=== PATIENT | male | born 1960 | race Caucasian/White ===

== ENCOUNTER → 2023-06-26 15:03 | Outpatient (BNVA) | payer OTHER, SELFPAY | PROVIDERS: Visit Provider Physician Assistant ==

== ENCOUNTER 2023-07-24 13:29 | Outpatient (AMB) | payer OTHER, SELFPAY ==
--- NOTE | 2023-07-24 13:52 | HO.SPINEOV ---
Intake Intake Visit Reasons: review Xray Intake Note: Mr. Lopez is here today to review his x-ray results. Principal Biostatistician Required: No Assessment & Plan Assessment & Plan (1) Cervical disc disorder: Code(s): M50.90 - Cervical disc disorder, unspecified, unspecified cervical region Plan Mr Lopez is here in the office today for follow-up. He underwent a 3 level anterior cervical fusion C4-C7 [address] Black[address] He had been doing well and otherwise only having some mild issues with his neck. He had a new primary care physician who saw him in wanted to order some baseline x-rays on his neck. It was noted at the time of the x-rays that he was developing a spondylolisthesis at C7-T1. His PCP urgent him to come back and see us for an evaluation. The patient tells me that he does not have a significant amount of discomfort in his neck, but does feel some pain radiating across across the top of his shoulder. No tingling, numbness, weakness or fine motor movement issues. On my exam he is walking with a normal gait, full strength and normal reflexes. [facility] that [facility] has solid fusion from C4-C7 but is developing a worsening of spondylolisthesis at C7-T1. I can see it on his preoperative MRI in 2019 and concealed on postoperative x-rays done at [facility] in 2020. In light of that worsening I will order cervical MRI to rule out spinal cord compression. I will also get flexion-extension studies here at [place] today. I will call him with the results. Total amount of time spent in this visit was 20 minutes in discussion of symptoms, cervical x-ray imaging results and subsequent plan of care Александр Black MD,PhD [facility] Orders: Orders MR cervical spine wo con Today M50.90 - Cervical disc disorder, unspecified, unspecified cervical region XR cervical spine 4V Today M50.90 - Cervical disc disorder, unspecified, unspecified cervical region Coding Level of Care Code Est Pt Level 3 (33710) Diagnoses Cervical disc disorder M50.90
== END 2023-07-24 14:50 | disposition home or self-care (01) ==
PROVIDERS: Visit Provider Physician Assistant
DX: M50.90 Cervical disc disorder, unspecified, unspecified cervical region (principal)
CPT/HCPCS: 99213

== ENCOUNTER 2023-07-24 13:29 | Outpatient (REF) | payer OTHER, SELFPAY ==
--- NOTE | ~2023-07-24 | XR_ITS ---
EXAMINATION: XR CERVICAL SPINE CLINICAL INFORMATION: Cervical spine disc disorder COMPARISON: None available. TECHNIQUE: 4 views of the cervical spine were obtained. FINDINGS: Status post anterior cervical discectomy and fusion of C4-C7. Spinal hardware grossly intact. No acute visible fracture or dislocation. Grade 1-2 anterolisthesis of C6 on C7 without overt dynamic instability on flexion-extension views. The level degenerative changes with disc space narrowing, osteophyte formation, and facet arthropathy. Straightening of normal cervical curvature. Vertebral body heights and disc spaces are otherwise maintained. Prevertebral soft tissues are unremarkable. Posterior elements are intact. Paraspinal soft tissues are unremarkable. Visualized portions of the upper chest are unremarkable. XR/XR cervical spine 4V IMPRESSION: 1. No acute visible fracture or dislocation. 2. Status post anterior cervical discectomy and fusion of C4-C7. Spinal hardware grossly intact. 3. Grade 1-2 anterolisthesis of C6 on C7 without overt dynamic instability on flexion-extension views.
== END 2023-07-24 13:30 | disposition home or self-care (01) ==
LOC: HO.HOSX 13:29
PROVIDERS: Visit Provider Physician Assistant
DX: M50.90 Cervical disc disorder, unspecified, unspecified cervical region (principal); Z98.1 Arthrodesis status
CPT/HCPCS: 72050; 99212

== ENCOUNTER 2023-08-28 14:25 | Outpatient (REF) | payer OTHER, SELFPAY ==
--- NOTE | ~2023-08-28 | MR_ITS ---
MR CERVICAL SPINE WITHOUT CONTRAST CLINICAL INFORMATION: Cervical disc disorder. COMPARISON: Cervical spine radiographs 07/24/2023. TECHNIQUE: MRI of the cervical spine was obtained using routine sequences without contrast. FINDINGS: Postoperative changes following ACDF at the C4-C7 levels. There is anterior subluxation of C7 on T1. There is moderate disc volume loss at C3-C4 and C7-T1. The vertebral body heights are maintained. The craniocervical junction is unremarkable. There is no bone marrow edema. There are no acute fractures. Cervical arterial flow voids are maintained. No significant extraspinal soft tissue findings. Partially imaged posterior fossa is unremarkable. C2-C3: Disc osteophyte mildly narrows the central canal. Advanced uncovertebral joint hypertrophy and hypertrophic facet arthropathy result in severe bilateral foraminal stenosis. C3-C4: Disc osteophyte mildly narrows the central canal. Uncovertebral joint spurring and advanced facet arthropathy result in severe left and moderate right foraminal stenosis. C4-C5: ACDF changes. Advanced uncovertebral joint hypertrophy and hypertrophic facet arthropathy result in severe bilateral foraminal stenosis. C5-C6: ACDF changes. Advanced uncovertebral joint hypertrophy and hypertrophic facet arthropathy result in severe bilateral foraminal stenosis. C6-C7: ACDF changes. Advanced uncovertebral joint hypertrophy and hypertrophic facet arthropathy result in severe bilateral foraminal stenosis C7-T1: There is anterior subluxation measuring 5 mm that along with a diffuse disc osteophyte, advanced facet arthropathy, and ligamentum flavum thickening result in severe central canal stenosis and significant compression of the cervical spinal cord. Intramedullary T2 signal changes within the cervical cord at this level as the sequela of compressive myelopathy. Disc osteophyte and facet arthropathy result in severe bilateral foraminal stenosis at this level. MR/MR cervical spine wo con IMPRESSION: - At C7-T1, anterior subluxation and advanced multifactorial degenerative changes result in severe central canal stenosis, significant compression of the cervical spinal cord, and severe bilateral foraminal stenosis. Intramedullary T2 signal changes within the cervical cord at this level as the sequela of compressive myelopathy. - There are postoperative changes following ACDF at the C4-C7 levels. - Advanced spondylitic changes result in varying degrees of moderate to severe foraminal stenosis bilaterally throughout the cervical spine as described. Findings discussed with Александр Yoon at 3:24 PM on 08/28/2023.
== END 2023-08-28 14:26 | disposition home or self-care (01) ==
LOC: HO.MRI 14:25
PROVIDERS: PCP Nurse Practitioner Gerontology; Visit Provider Physician Assistant
DX: M50.90 Cervical disc disorder, unspecified, unspecified cervical region (principal)
CPT/HCPCS: 72141

== ENCOUNTER 2023-09-08 08:03 | Day surgery (SDC) | payer OTHER, SELFPAY ==
--- NOTE | 2023-09-07 | ECG_ITS ---
Test Reason : preop Blood Pressure : / mmHG Vent. Rate : 061 BPM Atrial Rate : 061 BPM P-R Int : 168 ms QRS Dur : 090 ms QT Int : 394 ms P-R-T Axes : 071 073 066 degrees QTc Int : 396 ms Normal sinus rhythm Normal ECG No previous ECGs available Referred By: Annalise Daniels Electronically Signed By:JOY PINA MD
[2023-09-07 12:08] VITALS: BP 144/90; PULSE 67; RESP 18; O2SAT 97; BMI 23.6
[2023-09-07 13:39] LABS: Hematocrit 45.3 % (42.0-52.0); Hemoglobin 15.4 g/dl (14.0-18.0); Mean Corpuscular Hemoglobin 31.8 pg (27.0-33.0); Mean Corpuscular Volume 93.4 fL (80.0-98.0); Mean Platelet Volume 9.1 fL (9.4-12.4); Platelet Count 353 X10*3/uL (160-400); Red Blood Count 4.85 X10*6/uL (4.60-5.80); Red Cell Distribution Width 12.4 % (11.0-16.0); White Blood Count 8.5 X10*3/uL (4.8-10.8)
[2023-09-07 14:19] LABS: Anion Gap 14 (12-20); Blood Urea Nitrogen 18 mg/dL (9-16); Calcium 9.9 mg/dL (8.4-10.2); Carbon Dioxide 28 mmol/L (22-29); Chloride 103 mmol/L (96-108); Creatinine Clr Calc Pharmacy 71.5; Estimated Glomerular Filt Rate > 60; Glucose Random 85 mg/dL (60-115); Potassium 4.4 mmol/L (3.3-5.1); Sodium 141 mmol/L (135-145)
[2023-09-08] VITALS (9 sets, daily range): BP systolic 127–166; BP diastolic 78–94; PULSE 68–81; RESP 16–18; TEMP 36.3–37.1; O2SAT 93–98
--- NOTE | ~2023-09-08 | FL_ITS ---
EXAMINATION: XR FLUOROSCOPY WITH IMAGES CLINICAL INFORMATION: C7-T1 anterior cervical discectomy with fusion. COMPARISON: None available. TECHNIQUE: Fluoroscopy Supervised By: Dr. Lavell Black. Fluoroscopy Time: 0.1 minutes. Cumulative Dose: 4.40 mGy. DAP: 0.369 Gycm2. Images: 2. FINDINGS: Cervical spine levels difficult to determine on submitted views. There is new anterior fusion hardware inferior to the previously fused levels with anterior plate and bilateral screws and disc cage. When compared with prior cervical spine x-ray this is probably at the T1 T2 level. FL/FL guidance in OR IMPRESSION: Fluoroscopy guidance for spine surgery
--- NOTE | 2023-09-08 07:00 | MHC.SHP ---
Pre-Procedural Eval Section A Date of Service: 09/08/23 Section B Chief Complaint: Cervical disc disorder, unspecified, Allergies: Allergies Allergy/AdvReac Type Severity Reaction Status Date / Time No Known Allergies Allergy Verified 09/04/23 10:30 Review of Systems Sug[facility] H&P ROS: Negative: Constitution, Cardiovascular, Respiratory, Neurological, Psychiatric, Hem-Onc, Allergic/Immunologic, Gastrointestinal, Genitourinary, Musculoskeletal, Integumentary, Endocrine and Eyes/Ears/Nose/Throat Exam Surgical H&P Exam: Not Evaluated: HEENT, Not Evaluated: Heart, Not Evaluated: Lungs, Not Evaluated: Extremities, Not Evaluated: Abdomen, Not Evaluated: Skin and Not Evaluated: Neurological Plan Diagnosis/Plan: Unchanged I have reviewed the history and physical and performed a pertinent physical examination on my patient. No changes have occurred unless specified. plan remains the same, C7-T1 ACDF Time Spent With Patient Time: Total time managing care of this patient today __10__ minutes.
[2023-09-08] MEDS: Lactated Ringers 1,000 ML 100 ML IVCONT (08:28)
[2023-09-08] MEDS: methocarbamoL 750 MG TABLET PO (08:30)
[2023-09-08] MEDS: Gabapentin 300 MG CAPSULE PO (08:30)
--- NOTE | 2023-09-08 10:00 | HO.ANESPROP2 ---
Documented by User: Annalise Daniels NP 09/07/23 12:59 HPI - Anesthesia Eval Consult details Narrative: 63yo M for C7-T1 Ant Cerv Discectomy w/ fusion with stand alone cage,anterior plating with poss removal of anterior No recent illness No CP/SOB PMFSH Active Problems Active Problems: All Active Problems (Updated 09/07/23 @ 12:00 by Corrine Adame RN) Cervical disc disorder (Acute) Past Medical History Medical History Hypothyroid Back pain Elevated cholesterol HTN (hypertension) Family History Family history of problems with anesthesia: No Surgical History Surgical History H/O colonoscopy Hx of bilateral inguinal hernia repair History of total bilateral knee replacement Hx of cervical discectomy History of Problems with Anesthesia: No Social History Social History Household Members Other:: mother lives with him-helps with her care Are you a primary care transitions manager to a significant other at home: Yes Do you presently have visiting nurse or other home services: No Patient Tobacco Use Status: Former Tobacco user Quit Date: 2011 Tobacco use type: Cigarette Years Smoked: 30 Use of substances other than those prescribed or required for medical reasons: Yes Substance Use Type Other:: smokes marijuana on occasion Substance Use Frequency: Occasionally Have you been hit, kicked, punched, or otherwise hurt by someone within the past year? If so, by whom?: No Are you DNR?: No Advance Directives Information Provided: Yes (as above noted-advised to bring copy DOS) Advance Directives on File: No Recently lost weight without trying: No Eating poorly because of decreased appetite: No Nutrition Risks: No Nutritional Risk Poor oral hygiene: No (implant-upper right front) Meds Allergies Allergy/AdvReac Type Severity Reaction Status Date / Time No Known Allergies Allergy Verified 09/08/23 08:11 Home Medications Medication Instructions Recorded Confirmed Last Taken Type sildenafil 100 mg tablet 100 mg PO DAILY PRN Erectile 09/04/23 09/08/23 Unknown History Dysfunction levothyroxine 50 mcg tablet 50 mcg PO QAM 09/07/23 09/07/23 09/08/23 History Exam Exam Date and Time: September 07, 2023 1226 Height,Weight and Vital Signs: Height 6 ft Weight 78.925 kg Last Vital Signs Pulse 67 09/07/23 12:08 Resp 18 09/07/23 12:08 BP 144/90 H 09/07/23 12:08 Pulse Ox 97 09/07/23 12:08 O2 Del Method Room Air 09/07/23 12:08 Narrative Narrative: EKG 09/2023 Vent. Rate : 061 BPM Atrial Rate : 061 BPM P-R Int : 168 ms QRS Dur : 090 ms QT Int : 394 ms P-R-T Axes : 071 073 066 degrees QTc Int : 396 ms Normal sinus rhythm Normal ECG No previous ECGs available Airway Mallampati Class: I TM Dist: >3cm Neck ROM: Limited Loose/Missing/Broken Teeth: No (Implant 6&7) Heart: RRR Lungs: CTAB Assessment and Plan Assessment Anesthesia Assessment: Anesthesia Plan Discussed and PAT Visit Final Anesthetic Review Family History of Problems with Anesthesia: No History of Problems with Anesthesia: No Documented by User: Angelita Hayes DO 09/08/23 10:02 [facility] Past Medical History Medical History Hypothyroid Back pain Elevated cholesterol HTN (hypertension) Family History Family history of problems with anesthesia: No Surgical History Surgical History H/O colonoscopy Hx of bilateral inguinal hernia repair History of total bilateral knee replacement Hx of cervical discectomy History of Problems with Anesthesia: No Social History Social History Household Members Other:: mother lives with him-helps with her care Are you a primary care transitions manager to a significant other at home: Yes Do you presently have visiting nurse or other home services: No Patient Tobacco Use Status: Former Tobacco user Quit Date: 2011 Tobacco use type: Cigarette Years Smoked: 30 Use of substances other than those prescribed or required for medical reasons: Yes Substance Use Type Other:: smokes marijuana on occasion Substance Use Frequency: Occasionally Have you been hit, kicked, punched, or otherwise hurt by someone within the past year? If so, by whom?: No Are you DNR?: No Advance Directives Information Provided: Yes (as above noted-advised to bring copy DOS) Advance Directives on File: No Recently lost weight without trying: No Eating poorly because of decreased appetite: No Nutrition Risks: No Nutritional Risk Poor oral hygiene: No (implant-upper right front) Meds Allergies Allergy/AdvReac Type Severity Reaction Status Date / Time No Known Allergies Allergy Verified 09/08/23 08:11 Home Medications Medication Instructions Recorded Confirmed Last Taken Type sildenafil 100 mg tablet 100 mg PO DAILY PRN Erectile 09/04/23 09/08/23 Unknown History Dysfunction levothyroxine 50 mcg tablet 50 mcg PO QAM 09/07/23 09/07/23 09/08/23 History Exam Exam Date and Time: September 08, 2023 0955 Height,Weight and Vital Signs: Height 6 ft Weight 78.925 kg Last Vital Signs Pulse 67 09/07/23 12:08 Resp 18 09/07/23 12:08 BP 144/90 H 09/07/23 12:08 Pulse Ox 97 09/07/23 12:08 O2 Del Method Room Air 09/07/23 12:08 Vital Signs Pulse Rate 67 09/07/23 12:08 Respiratory Rate 18 09/07/23 12:08 Blood Pressure 144/90 H 09/07/23 12:08 Pulse Oximetry 97 09/07/23 12:08 Oxygen Delivery Method Room Air 09/07/23 12:08 Temperature 97.3 F 09/08/23 08:27 Pulse Rate 72 09/08/23 08:27 Respiratory Rate 16 09/08/23 08:27 Blood Pressure 127/82 09/08/23 08:27 Pulse Oximetry 96 09/08/23 08:27 Oxygen Delivery Method Room Air 09/08/23 08:27 Airway Mallampati Class: I TM Dist: >3cm Neck ROM: Limited Loose/Missing/Broken Teeth: Yes (Implant 6&7, multiple missing and broken) Heart: S1S2 Assessment and Plan Assessment Anesthesia Assessment: Anesthesia Plan Discussed and Chart Reviewed Final Anesthetic Review Family History of Problems with Anesthesia: No History of Problems with Anesthesia: No NPO: Yes ASA Class: II Final Preanesthetic Review: No Changes in Pt Med Stat, Meds/Allgs Chart Reviewed, Consent Obtained/Reviewed and Anes Risks/Benef Reviewed Patient Risk: Low Procedure Risk: Low Anesthetic Plan Anesthetic Plan: GA and Agree w/ Assess. and Plan Disposition: Standard PACU
--- NOTE | 2023-09-08 11:58 | PM.DS ---
DS: Providers Provider Date of Service: 09/08/23 Primary care physician: Jim Marin NP DS: Summary Time Attestation Discharge coordination time: Less than 30 minutes Quality: Safe Use of Opioids Does Pt have an Active Cancer Diagnosis on the Problem List?: No Quality: Stroke Does the patient have a stroke diagnosis?: No Physical Exam Vital Signs: Vital Signs: Last Vital Signs Temp 97.3 F 09/08/23 08:27 Pulse 72 09/08/23 08:27 Resp 16 09/08/23 08:27 BP 127/82 09/08/23 08:27 Pulse Ox 96 09/08/23 08:27 O2 Del Method Room Air 09/08/23 08:27 BMI result Body Mass Index 23.6 DS: Data Data Completed and Pending Labs on day of discharge: Laboratory Results - last 24 hr 09/07/23 12:49 WBC 8.5 RBC 4.85 Hgb 15.4 Hct 45.3 MCV 93.4 MCH 31.8 MCHC 34.0 RDW 12.4 Plt Count 353 MPV 9.1 L Absolute Nucleated RBC 0.000 Nucleated RBC % (auto) 0.0 Sodium 141 Potassium 4.4 Chloride 103 Carbon Dioxide 28 Anion Gap 14 BUN 18 H Creatinine 1.16 Estim Creat Clear Calc 71.5 Estimated GFR > 60 Random Glucose 85 Calcium 9.9 Discharge Plan Discharge Patient Disposition: Home, Self-Care Referrals: Jim Marin NP [Primary Care Provider] - 1 Week Discharge Medications: New oxycodone 5 mg tablet 5 mg PO Q6H PRN (Reason: severe pain (scale score 7-10)) Qty: 30 0RF Rx Instructions: Partial Fill upon patient request. docusate sodium 100 mg capsule 100 mg PO BID Qty: 20 0RF Continued sildenafil 100 mg Tablet 100 mg PO DAILY PRN (Reason: Erectile Dysfunction) Rx Instructions: administer 30 minutes to 4 hours before activity levothyroxine 50 mcg Tablet 50 mcg PO QAM Discharge Orders: Discharge Order (Routine); Ordered 09/08/23 Ordered By: Derrick Fuentes Diet: Advance to usual diet Activity on Discharge: As tolerated Activity Restrictions/Additional Instructions: After your spinal surgery we ask you to observe the following restrictions/guidelines: Activity: It is normal to feel some discomfort as you increase your activity, but that will improve with time. We ask you avoid heavy lifting or acitivities that cause pain. As a general rule, 8lbs is a safe limit for lifting right after surgery. Walk as much as you feel comfortable but not to exhaustion. You will feel extra tired the first few days after surgery. Stay well hydrated. It is OK to walk up and down stairs You may return to driving when you are off narcotics (such as vicodin, oxycodone, dilaudid, etc), and you are back to normal functional capacity. If you have any concerns please check with office before driving. Return to work is specific to each patient and each surgery, so please speak with your doctor/PA at first follow up. Please bring paperwork such as FMLA at that time if you need it filled out. Medications: We will give you a short supply of narcotics after surgery (usually one weeks worth). If you need more please call the office but do not use more than prescribed. You will need to give our office 48 hours notice if you need narcotics refilled and we do not fill narcotics on weekends or evenings. If you are on a narcotic, it is a good idea to take a stool softener such as colace or senna to avoid constipation If you take blood thinner such as aspirin, Plavix, Coumadin, Effient, Eliquis etc for conditions such as Afib, DVT, Pulmonary embolus, coronary disease, stents etc please speak with your surgeon about specific details as to when you can resume these medications. You can resume NSAIDs on post op day 1 (eg: Motrin, Naproxen, etc). Follow up: Please call the office, , after surgery to arrange a 3 week follow up for wound check. Wound Care: You may remove your dressing on the first day after surgery. You may leave open to air. Please do not remove the steri strips underneath. they will fall off on their own in one week. IT IS NORMAL FOR THE WOUND TO OOZE OR BE BLOODY FOR A FEW DAYS AFTER SURGERY. IF THIS HAPPENS JUST PLACE NEW DRESSING OVER IT TO AVOID STAINING CLOTHES. You may shower on post op day # 1 We ask that you do not let the water soak the wound. If it does get wet, just towel dry lightly. Please do not scrub your incision or place any type of chemical/ointment on the wound. No tub baths, pools or jacuzzis for one month. If you have any leaking or redness from your wound, or fevers, please call the office.
--- NOTE | 2023-09-08 17:34 | P.OP_ITS ---
Operative Note Operative Note Date of Service: 09/08/23 Narrative: Preoperative Diagnosis: C7-T1 anterolisthesis with spinal cord compression Procedure: C7-T1 Anterior discectomy, arthrodesis and implantation cage ; C7-T1 anterior instrumentation ; local autograft; microscope Informed Consent was obtained for this operation. I have explained the nature, purpose and benefits of the operation. I have discussed the risks and benefit of the operation including possible complications or adverse events with patient/family. Alternative(s) were discussed with the patient with their relative benefits and risks as well as the consequences of not accepting the operation were included in obtaining consent. Surgeon: BERNADINE PACHECO MD, PHD Procedure Assisted By: JAYE Whitten Description of Procedure: This patient previously underwent a C3-C7 anterior diskectomy and fusion. He presents with progressive neck pain and mild symptoms of cervical myelopathy. Repeat imaging shows an anterolisthesis C7-T1 with spinal cord compression. He was offered an anterior diskectomy fusion C7-T1 with possible removal of previous anterior hardware. The procedure and complications were explained. The patient was consented. The patient was brought to the operating room and endotracheally intubated. The patient was put in supine position with slight extension of the neck. Prep and drape was done followed by timeout. A mid cervical incision was made followed by opening of the platysma. The prevertebral fascia was reached following the natural planes while the physician bilingual medical assistant provided manual retraction. The prevertebral fascia was opened to expose the distal end of the anterior plate and the C7-T1 disc space. A spinal needle was placed in the disk space to confirm the correct level with xray. The longus colli muscles were released bilaterally and a self retaining retractor was inserted. Two [place] pins were placed in the C7 and T1 vertebral bodies and distraction was give over the interspace. The discectomy was completed toward the posterior annulus of the disc. The microscope was brought in. The remainder of the discectomy was completed. The posterior ligament was opened and resected to expose the underlying dura. Osteophytes were resected from the body of C7 and T1 to further decompress the spinal cord and saved for autograft. Bilateral foraminotomies were done. The endplates were prepared after which a 6 mm cage filled with autograft was inserted into the disc space. A separate attached plate to the cage was locked down with 2 x 14 mm screws as anterior instrumentation. In addition a 12 mm plate from C7-T1 was locked down with 4 x 14 mm screws. Fortunately, the previous placed anterior plate did not have to be removed. Final x-rays in AP and lateral projection showed a satisfactory position of the implant and anterior instrumentation. The physician bilingual medical assistant took over. The [place] pin was removed. Hemostasis was done. He closed the incision in 2 layers with a 3-0 Vicryl. Steri-Strips used to approximate incision. An OpSite with Tegaderm was used to cover the incision. All sponge and needle counts were correct. Patient was extubated and transported in stable is to recovery room. Anesthesia: General Estimated Blood Loss (ml): 30 mL Duration of Surgery: 60 minutes Postoperative Plan: Discharge home Complications: None
== END 2023-09-08 14:09 | disposition home or self-care (01) ==
PROVIDERS: Nurse Practitioner; PCP Nurse Practitioner Gerontology; Visit Provider Neurological Surgery
PROC: (CPT 22551; principal; 2023-09-08 10:20)
DX: M50.90 Cervical disc disorder, unspecified, unspecified cervical region (principal); M43.12 Spondylolisthesis, cervical region; M25.519 Pain in unspecified shoulder; Z98.1 Arthrodesis status; D64.9 Anemia, unspecified; I10 Essential (primary) hypertension; E78.00 Pure hypercholesterolemia, unspecified; E03.9 Hypothyroidism, unspecified; Z79.899 Other long term (current) drug therapy; Z96.653 Presence of artificial knee joint, bilateral; Z87.891 Personal history of nicotine dependence; M50.123 Cervical disc disorder at C6-C7 level with radiculopathy
CPT/HCPCS: 22551; 22853; 20936; 22845; 36415; 80048; 85027; 93005; C1713; J0131; J0690; J1100; J1170; J2250; J2405; J3010; L8699

== ENCOUNTER → 2023-09-08 08:03 | Outpatient (BNV) | payer OTHER, SELFPAY | PROVIDERS: PCP Nurse Practitioner Gerontology; Visit Provider Physician Assistant | DX: M50.03 Cervical disc disorder with myelopathy, cervicothoracic region (principal) | CPT/HCPCS: 20936; 22551; 22552; 22845; 22853; 99499 ==